=== PATIENT | male | born 1975 | race Caucasian/White ===

== ENCOUNTER 2018-06-14 13:33 | Emergency (ER) | payer SELFPAY ==
[~2018-06-14] VITALS: Ht 188 cm; Wt 79.4 kg
[2018-06-14 13:35] VITALS: BP 120/71; PULSE 88; RESP 18; Ht 188 cm; Wt 79.4 kg
[2018-06-14] MEDS ORDERED: LIDOCAINE 1% (MPF) 5 ML VIAL INJ ONE (15:00)
[2018-06-14] MEDS ORDERED: CEPH-443 PO (15:18)
[2018-06-14] MEDS ORDERED: IBUP800T48 PO (15:18)
[2018-06-14] MEDS ORDERED: SULF1TAB31 PO (15:18)
--- NOTE | 2018-06-14 15:26 | ERD ---
ER Documentation Chief Complaint Chief Complaint L ear base abscess X 1 wk HPI 42-year-old male presenting with abscess at the base of his left posterior ear. He states is been there for about a week. He states this is a recurrent abscess location. Normally the area drains on its own but has not drained this time and is causing pain. Patient denies any fevers. Denies other medical problems. NKDA. Surgical history denies. Social history denies ROS All systems reviewed and are negative except as per history of present illness. Medications Home Meds Active Scripts Sulfamethoxazole/Trimethoprim* (Bactrim Ds* Tablet) 1 Each Tablet, 1 TAB PO BID, #14 TAB Prov:DANIS MOSS PA-C 06/14/18 Cephalexin* (Keflex*) 500 Mg Capsule, 500 MG PO QID for 7 Days, CAP Prov:DANIS MOSS PA-C 06/14/18 Ibuprofen* (Motrin*) 800 Mg Tab, 800 MG PO Q6, #30 TAB Prov:DANIS MOSS PA-C 06/14/18 Allergies Allergies: Coded Allergies: No Known Allergy (Unverified , 06/14/18) PMhx/Soc Hx Substance Use: No Hx Tobacco Use: No Smoking Status: Never smoker FmHx Family History: No diabetes, No coronary disease, No other Physical Exam Vitals Vital Signs Date Temp Pulse Resp B/P (MAP) Pulse Ox O2 O2 Flow FiO2 Time Delivery Rate 06/14/18 97.3 88 18 120/71 98 13:35 (87) Physical Exam GENERAL: The patient is well-appearing, well-nourished, in no acute distress HEENT: Atraumatic. Conjunctivae are pink. Pupils equal, round, and reactive to light. There is no scleral icterus. Tympanic membranes clear bilaterally. Oropharynx clear. CHEST: Clear to auscultation bilaterally. There are no rales, wheezes or rhonchi. HEART: Regular rate and rhythm. No murmurs, clicks, rubs or gallops. No S3 or S4. SKIN: Erythema and fluctuant mass noted behind left posterior earlobe. Results 24 hrs Current Medications Medications Dose Sig/Doni Start Time Status Last (Trade) Ordered Route PRN Stop Time Admin Dose Reason Admin Lidocaine 5 ml ONCE ONCE 06/14/18 DC (Xylocaine INJ 15:00 06/14/18 1% (Mpf)) 15:01 Procedures/MDM ER Course: 42-year-old male presenting with abscess to base of left ear. Small incision was made after lidocaine was injected. Copious amounts of discharge was extracted. Locules were broken up. Pressure applied. DM: 42-year-old male presenting with abscess to posterior left ear. I have low suspicion for deep tracking infection. Patient's abscess was drained and pressure was applied. Patient was discharged with antibiotics. Patient is told symptoms change or worsen to return the ER immediately. All questions answered at discharge Departure Diagnosis: Primary Impression: Acute abscess Condition: Stable Patient Instructions: Abscess Drainage Referrals: [facility] YOU HAVE RECEIVED A MEDICAL SCREENING EXAM AND THE RESULTS INDICATE THAT YOU DO NOT HAVE A CONDITION THAT REQUIRES URGENT TREATMENT IN THE EMERGENCY DEPARTMENT. FURTHER EVALUATION AND TREATMENT OF YOUR CONDITION CAN WAIT UNTIL YOU ARE SEEN IN YOUR DOCTORS OFFICE WITHIN THE NEXT 1-2 DAYS. IT IS YOUR RESPONSIBILITY TO MAKE AN APPOINTMENT FOR FOLOW-UP CARE. IF YOU HAVE A PRIMARY DOCTOR --you should call your primary doctor and schedule an appointment IF YOU DO NOT HAVE A PRIMARY DOCTOR YOU CAN CALL OUR PHYSICIAN REFERRAL HOTLINE AT IF YOU CAN NOT AFFORD TO SEE A PHYSICIAN YOU CAN CHOSE FROM THE FOLLOWING [facility] [address] [facility] [address] [facility] [address] [facility] [facility] [address] [facility]. [facility] [address] [facility]. [facility]. [address] Additional Instructions: FOLLOW UP WITH YOUR PRIMARY CARE PHYSICIAN TOMORROW.Return to this facility if you are not improving as expected. DANIS MOSS PA-C Jun 14, 2018 15:26
== END 2018-06-14 16:06 | disposition home or self-care (01) ==
LOC: FTE 13:33
DX: H66.002 Acute suppurative otitis media without spontaneous rupture of ear drum, left ear (principal)